=== PATIENT | female | born 2000 | race Caucasian/White ===

== ENCOUNTER 2023-04-25 14:37 | Day surgery (SDC) | payer OTHER ==
[2023-04-25] MEDS ORDERED: hydrALAZINE 20 MG/ML VIAL SLOW IVP PRN (15:24)
[2023-04-25] MEDS ORDERED: Acetaminophen 500 MG TAB PO SCH (15:30)
[2023-04-25 15:36] VITALS: BMI 33.7
== END 2023-04-25 17:30 | disposition home or self-care (01) ==
LOC: CSHLD/OP 14:37
PROVIDERS: ATTEND Obstetrics & Gynecology
DX: O99.891 Other specified diseases and conditions complicating pregnancy (principal); M54.50 Low back pain, unspecified; O99.213 Obesity complicating pregnancy, third trimester; E66.9 Obesity, unspecified; O99.013 Anemia complicating pregnancy, third trimester; D64.9 Anemia, unspecified